=== PATIENT | male | born 1960 | race Caucasian/White ===

== ENCOUNTER 2021-06-09 10:22 | Outpatient (CLI) | payer OTHER ==
[~2021-06-09] VITALS: Ht 180.3 cm; Wt 122.5 kg
[2021-06-09 10:35] VITALS: BP 199/110
[2021-06-09] MEDS ORDERED: ACETAMINOPHEN 500 MG TAB (TYLENOL) PO PRN (10:45)
[2021-06-09] MEDS ORDERED: EPINEPHrine INJECTION 1 MG/ML AMP IM PRN (10:45)
[2021-06-09] MEDS ORDERED: diphenhydrAMINE 50 MG/ML INJ (BENADRYL) IV PRN (10:45)
[2021-06-09] MEDS ORDERED: ONDANSETRON 4 MG/2 ML (SDV) Z0FRAN IV PRN (10:45)
[2021-06-09] MEDS ORDERED: SOTROVIMAB 500 MG/NS 50 ML IVPB IV ONE ×2 (10:45)
[2021-06-09 11:56] VITALS: BP 179/104
[2021-06-09 11:58] VITALS: BP 179/104
== END 2021-06-09 11:56 ==
LOC: INFUSION 10:22
PROVIDERS: ATTEND Nurse Practitioner Family
DX: U07.1 COVID-19 (principal)